=== PATIENT | male | born 1995 | race Caucasian/White ===

== ENCOUNTER 2016-12-01 11:31 | Emergency (ER) | payer OTHER, SELFPAY ==
--- NOTE | 2016-12-01 12:52 | EDM.PDOC ---
ED HISTORY OF PRESENT ILLNESS - General Chief Complaint: Cardiovascular Problem Stated Complaint: HEART PAIN CAME FROM CLINIC Time Seen by Provider: 12/01/16 12:52 Source: Reports: Patient, Family History Limitations: Reports: No limitations - History of Present Illness INITIAL COMMENTS - FREE TEXT/NARRATIVE: for about 1 month pt has had a brief sharp stabbing pain in the left lower ches. This just lasts a second or 2 and it goes away. Timing/Duration: Reports: Week(s):, Waxing/waning, Other ( This comes and goes and is always brief. ) Location, General: Reports: chest Associated Symptoms: Reports: denies other symptoms - Related Data Allergies/ADRs: Allergies Allergy/AdvReac Type Severity Reaction Status Date / Time amoxicillin trihydrate Allergy Cannot Verified 12/01/16 12:08 [From Augmentin] Remember potassium clavulanate Allergy Cannot Verified 12/01/16 12:08 [From Augmentin] Remember Sulfa (Sulfonamide Allergy Cannot Verified 12/01/16 12:08 Antibiotics) Remember venom-honey bee Allergy Swelling Verified 12/01/16 12:08 [bee venom (honey bee)] Home Meds: Home Meds Albuterol [Proair HFA] 90 mcg INH Q4H PRN 04/26/14 [History] Ibuprofen 200 mg PO ASDIRECTED PRN 04/26/14 [History] Montelukast [Singulair] 10 mg PO BEDTIME 12/01/16 [History] Past Medical History Cardiovascular History: Reports: Other (see below) Other Cardiovascular History: Irregular heart beats. Respiratory History: Reports: Asthma Musculoskeletal History: Reports: Fracture Other Musculoskeletal History: wrist Neurological History: Reports: Concussion - Infectious Disease History Infectious Disease History: Reports: Chicken pox Social & Family History - Tobacco Use Smoking Status *Q: Never Smoker Second Hand Smoke Exposure: No - Caffeine Use Caffeine Use: Reports: Coffee - Alcohol Use Days Per Week of Alcohol Use: 2 Number of Drinks Per Day: 4 Total Drinks Per Week: 8 - Recreational Drug Use Recreational Drug Use: No ED ROS GENERAL - Review of Systems Review Of Systems: See Below Constitutional: Reports: no symptoms HEENT: Reports: No symptoms Respiratory: Reports: No Symptoms Cardiovascular: Reports: Chest pain, Other (pt has a brief episode of sharp shooting pain) Endocrine: Reports: no symptoms GI/Abdominal: Reports: No symptoms : Reports: no symptoms Musculoskeletal: Reports: no symptoms Skin: Reports: no symptoms ED EXAM, GENERAL - Physical Exam Exam: See Below Free Text/Narrative:: pt has sharp shooting pain in the left left lower chest. It does not hurt when he takes a deep breath. Exam Limited By: No limitations General Appearance: alert, anxious Ears: normal TMs Nose: normal inspection Throat/Mouth: Normal inspection Head: atraumatic Neck: normal inspection Respiratory/Chest: no respiratory distress Cardiovascular: regular rate, rhythm, other (Pt does have a rare pac) GI/Abdominal: soft, non tender (Male) Exam: Deferred Rectal (Males) Exam: Deferred Back Exam: normal inspection Extremities: normal capillary refill Neurological: alert, oriented, normal cognition Psychiatric: normal affect Course - Vital Signs Last Recorded V/S: Last Vital Signs Temp 35.5 C 12/01/16 12:16 Pulse 68 12/01/16 12:16 Resp 16 12/01/16 12:16 BP 129/86 12/01/16 12:16 Pulse Ox 100 12/01/16 12:16 - Orders/Labs/Meds Orders: Active Orders 24 hr Category Date Time Status EKG Documentation Completion [RC] ASDIRECTED Care 12/01/16 12:51 Active Chest 2V [CR] Stat Exams 12/01/16 12:51 Taken EKG 12 Lead [EK] Routine Ther 12/01/16 12:50 Ordered - Re-Assessments/Exams Free Text/Narrative Re-Assessment/Exam: 12/01/16 13:36 ekg was normal. His chest xray also looked normal. Departure - Departure Time of Disposition: 13:38 Disposition: Home, Self-Care 01 Condition: fair Clinical Impression: Atypical chest pain Forms: ED Department Discharge Care Plan Goals: rtc if this should get worse, or more prolonged. - My Orders Last 24 Hours: My Active Orders 12/01/16 12:50 EKG 12 Lead [EK] Routine 12/01/16 12:51 EKG Documentation Completion [RC] ASDIRECTED Chest 2V [CR] Stat - Assessment/Plan Last 24 Hours: My Active Orders 12/01/16 12:50 EKG 12 Lead [EK] Routine 12/01/16 12:51 EKG Documentation Completion [RC] ASDIRECTED Chest 2V [CR] Stat
--- NOTE | 2016-12-01 13:39 | CR ---
Chest 2V INDICATION: left side chest pain. FINDINGS: Comparison 03/08/2014. No change. Slight thoracolumbar curve. Exam otherwise negative.
[2016-12-01 14:03] VITALS: BP 132/57
== END 2016-12-01 14:00 | disposition home or self-care (01) ==
LOC: JP.ED 11:31
DX: R07.89 Other chest pain (principal); J45.909 Unspecified asthma, uncomplicated; Z79.899 Other long term (current) drug therapy; Z88.1 Allergy status to other antibiotic agents; Z88.2 Allergy status to sulfonamides; Z91.030 Bee allergy status
CPT/HCPCS: 71020; 71020-26; 93005; 99285-25